=== PATIENT | female | born 1985 | race Two or more races ===

== ENCOUNTER 2016-10-22 16:40 | Inpatient (IN) | payer MEDICAID ==
[2016-10-22] MEDS ORDERED: ONDANSETRON 4 MG TAB.RAPDIS PO ONE (18:06)
[2016-10-22] MEDS ORDERED: HYDROCODONE/ACETAMINOPHEN 5-325 MG TABLET PO ONE (18:06)
--- NOTE | 2016-10-22 18:24 | ER Document Report ---
ED Medical Screen (RME) - General TRAVEL OUTSIDE OF THE [place] IN LAST 30 DAYS: No <SHERRIE NIEVES - Last Filed: 10/22/16 18:24> <LAUREN LLOYD - Last Filed: 10/22/16 20:33> - General Chief Complaint: Abdominal Pain Stated Complaint: ABDOMINAL PAIN,BACK PAIN Time Seen by Provider: 10/22/16 17:59 Notes: 30-year-old Ethiopian speaking female presenting to the emergency department for right upper quadrant pain that radiates into her back. Patient's sister translates for the patient. Boni patient states her pain feels like a burning she had similar pain during . Patient was told during her to take antiacid medications. Patient states during her the pain was waxing and waning but now the pain is constant. Patient also has some nausea and states her pain is exacerbated with food. Patient states she can only eat very small amounts. Patient has no surgical history. Patient also complains of fever. (SHERRIE NIEVES) - Related Data Allergies/Adverse Reactions: No Known Drug Allergies Allergy (Verified 10/22/16 17:51) Past Medical History Renal/ Medical History: Denies: Hx Peritoneal Dialysis <SHERRIE NIEVES - Last Filed: 10/22/16 18:24> Physical Exam <SHERRIE NIEVES - Last Filed: 10/22/16 18:24> <LAUREN LLOYD - Last Filed: 10/22/16 20:33> - Vital signs Vitals: Temp Pulse Resp BP Pulse Ox 98.3 F 69 16 107/69 100 10/22/16 17:16 10/22/16 17:16 10/22/16 17:16 10/22/16 17:16 10/22/16 17:16 - Notes Notes: GENERAL: Alert, interacts well. No acute distress. LUNGS: Clear to auscultation bilaterally, no wheezes, rales, or rhonchi. No respiratory distress. HEART: Regular rate and rhythm. No murmurs, gallops, or rubs. ABDOMEN: Soft, RUQ tenderness, positive Barraza's sign. EXTREMITIES: Moves all 4 extremities spontaneously. NEUROLOGICAL: Alert and oriented x3. Normal speech. (SHERRIE NIEVES) Course - Laboratory Result Diagrams: 10/22/16 18:35 10/22/16 18:35 <LAUREN LLOYD - Last Filed: 10/22/16 20:33> - Vital Signs Vital signs: Temp Pulse Resp BP Pulse Ox 98.3 F 69 16 107/69 100 10/22/16 17:16 10/22/16 17:16 10/22/16 17:16 10/22/16 17:16 10/22/16 17:16 - Laboratory Laboratory results interpreted by me: 10/22/16 10/22/16 18:35 18:35 WBC 10.8 H AST 151 H ALT 109 H Scribe Documentation - Scribe Written by Scribe:: Megan Alvarez, 10/22/16 18:40 acting as scribe for :: Akhil <SHERRIE NIEVES - Last Filed: 10/22/16 18:24>
[2016-10-22 19:00] LABS: ABSOLUTE EOSINOPHILS # (AUTO) 0.2 10^3/uL (0.0-0.6); ABSOLUTE LYMPHOCYTES (AUTO) 2.9 10^3/uL (0.5-4.7); ABSOLUTE MONOCYTES (AUTO) 0.7 10^3/uL (0.1-1.4); BASOPHILS % (AUTO) 0.2 % (0-2); EOSINOPHILS % (AUTO) 1.7 % (0-6); HEMATOCRIT 37.1 % (36.0-47.0); HEMOGLOBIN 12.5 g/dL (12.0-15.5); HGB HCT DIFFERENCE 0.4; LYMPHOCYTES % (AUTO) 26.7 % (13-45); MEAN CORPUSCULAR HEMOGLOBIN 29.7 pg (27.0-33.4); MEAN CORPUSCULAR HGB CONC 33.6 g/dL (32.0-36.0); MEAN CORPUSCULAR VOLUME 88 fl (80-97); MONOCYTES % (AUTO) 6.5 % (3-13); RED CELL DISTRIBUTION WIDTH 13.3 % (11.5-14.0); SEGMENTED NEUTROPHILS % (AUTO) 64.9 % (42-78); WHITE BLOOD COUNT 10.8 10^3/uL (4.0-10.5)
--- NOTE | 2016-10-22 19:14 | ER Document Report ---
ED GI/ - General Chief Complaint: Abdominal Pain Stated Complaint: ABDOMINAL PAIN,BACK PAIN Time Seen by Provider: 10/22/16 17:59 Notes: Patient is a 30-year-old female that comes emergency department for chief complaint of pain in her right upper abdomen and middle of the abdomen, she states the pain seems to go around to her right mid back, symptoms have been present for almost 6 days now, she states she is having trouble eating or drinking anything because eating causes pain, she states she vomited earlier today. Patient states she had this pain towards the end of her as well, was taking antacids for it. Patient denies any surgeries, only past medical history is hypothyroidism for which she takes Synthroid. she denies alcohol, smoking. Last menstrual period 1 week ago. TRAVEL OUTSIDE OF THE [place] IN LAST 30 DAYS: No - Related Data Allergies/Adverse Reactions: No Known Drug Allergies Allergy (Verified 10/22/16 17:51) Past Medical History - General Information source: Patient - Social History Smoking Status: Never Smoker Frequency of alcohol use: None Drug Abuse: None Lives with: Family Family History: Reviewed & Not Pertinent - Medical History Medical History: Negative Renal/ Medical History: Denies: Hx Peritoneal Dialysis Surgical Hx: Negative - Immunizations Immunizations up to date: Yes Hx Diphtheria, Pertussis, Tetanus Vaccination: Yes Review of Systems - Review of Systems Constitutional: No symptoms reported EENT: No symptoms reported Cardiovascular: No symptoms reported Respiratory: No symptoms reported Gastrointestinal: See HPI Genitourinary: No symptoms reported Female Genitourinary: No symptoms reported Musculoskeletal: No symptoms reported Skin: No symptoms reported Hematologic/Lymphatic: No symptoms reported Neurological/Psychological: No symptoms reported Physical Exam - Vital signs Vitals: Temp Pulse Resp BP Pulse Ox 98.3 F 69 16 107/69 100 10/22/16 17:16 10/22/16 17:16 10/22/16 17:16 10/22/16 17:16 10/22/16 17:16 Interpretation: Normal - General General appearance: Appears well, Alert In distress: None - HEENT Head: Normocephalic, Atraumatic Eyes: Normal Pupils: PERRL - Respiratory Respiratory status: No respiratory distress Chest status: Nontender Breath sounds: Normal Chest palpation: Normal - Cardiovascular Rhythm: Regular. No: Tachycardia Heart sounds: Normal auscultation, S1 appreciated, S2 appreciated Murmur: No - Abdominal Inspection: Normal Distension: No distension Bowel sounds: Normal Tenderness: Tender - Right upper quadrant tenderness with guarding and also tenderness in the epigastric area, otherwise benign and soft abdomen, Barraza's sign, Guarding Organomegaly: No organomegaly - Back Back: Normal, Nontender. No: CVA tenderness - Extremities General upper extremity: Normal inspection, Nontender, Normal color, Normal ROM , Normal temperature General lower extremity: Normal inspection, Nontender, Normal color, Normal ROM , Normal temperature, Normal weight bearing. No: Javad's sign - Neurological Neuro grossly intact: Yes Cognition: Normal Orientation: AAOx4 Wayne Coma Scale Eye Opening: Spontaneous [place] Coma Scale Verbal: Oriented Wayne Coma Scale Motor: Obeys Commands Wayne Coma Scale Total: 15 Speech: Normal Motor strength normal: LUE, RUE, LLE, RLE Sensory: Normal - Psychological Associated symptoms: Normal affect, Normal mood - Skin Skin Temperature: Warm Skin Moisture: Dry Skin Color: Normal Course - Re-evaluation Re-evalutation: On examination patient was guarding in the epigastric area and right upper quadrant with positive Barraza sign. No CVA tenderness. No lower abdominal tenderness. Patient does not appear to be in distress. No tachycardia, hypotension, fever. Mild leukocytosis at 10.8 with no bandemia or shift. Chemistry shows mildly elevated LFTs with AST greater than ALT, patient denies any recent alcohol. Alkaline phosphatase is normal, bilirubin normal, lipase normal. Ultrasound showing cholelithiasis with mild gallbladder wall thickening but no. Cholecystic fluid. No common bile duct dilatation. On reexamination patient's pain is improved although she still having some pain on examination. Patient is unable to eat at home due to discomfort. Vomited once earlier. Discussed with Dr. Petit. 10/22/16 20:[address] Whitaker, patient will be admitted to the surgical service, he requests repeat labs at 6 AM in addition to management. Patient and family are very agreeable with this plan. - Vital Signs Vital signs: Temp Pulse Resp BP Pulse Ox 98.3 F 69 16 107/69 100 10/22/16 17:16 10/22/16 17:16 10/22/16 17:16 10/22/16 17:16 10/22/16 17:16 - Laboratory Result Diagrams: 10/22/16 18:35 10/22/16 18:35 Laboratory results interpreted by me: 10/22/16 10/22/16 18:35 18:35 WBC 10.8 H AST 151 H ALT 109 H Discharge - Discharge Clinical Impression: Right upper quadrant pain Cholelithiasis Qualifiers: Cholelithiasis location: gallbladder Cholecystitis presence: without cholecystitis Biliary obstruction: without biliary obstruction Qualified Code(s) : K80.20 - Calculus of gallbladder without cholecystitis without obstruction Vomiting Qualifiers: Vomiting type: unspecified Vomiting Intractability: non-intractable Nausea presence: with nausea Qualified Code(s): R11.2 - Nausea with vomiting, unspecified Condition: Stable Disposition: ADMITTED INPATIENT Admitting Provider: Surgicalist Unit Admitted: Surgical Floor
[2016-10-22 19:22] LABS: ALANINE AMINOTRANSFERASE 109 U/L (9-52); ALKALINE PHOSPHATASE 126 U/L (38-126); ANION GAP 9 (5-19); ASPARTATE AMINO TRANSFERASE 151 U/L (14-36); BILIRUBIN,DIRECT 0.3 mg/dL (0.0-0.4); BILIRUBIN,TOTAL 0.4 mg/dL (0.2-1.3); BLOOD UREA NITROGEN 12 mg/dL (7-20); CALCIUM 9.4 mg/dL (8.4-10.2); CARBON DIOXIDE 29 mmol/L (22-30); CHLORIDE 104 mmol/L (98-107); CREATININE RESULT 0.71 mg/dL (0.52-1.25); GLUCOSE 82 mg/dL (75-110); POTASSIUM 3.7 mmol/L (3.6-5.0); SODIUM 141.8 mmol/L (137-145); TOTAL PROTEIN 7.6 g/dL (6.3-8.2)
--- NOTE | 2016-10-22 19:25 | RADIOLOGY REPORT (SQ) ---
EXAM DESCRIPTION: U/S ABDOMEN LIMITED W/O DOP COMPLETED DATE/TIME: 10/22/2016 7:09 pm REASON FOR STUDY: RUQ pain radiating to back COMPARISON: None. TECHNIQUE: Dynamic and static grayscale images acquired of the abdomen and recorded on PACS. Additio nal selected color Doppler and spectral images recorded. LIMITATIONS: None. FINDINGS: PANCREAS: No masses. Visualized pancreatic duct normal caliber. LIVER: No masses. Echotexture normal. LIVER VASCULATURE: Normal in appearance. GALLBLADDER: There are gallstones. Gallbladder wall is slightly thickened measured at 3.3 mm with 3 being the upper limits of normal. ULTRASOUND-DETECTED BARRAZA'S SIGN: Negative. INTRAHEPATIC DUCTS AND COMMON DUCT: CBD and intrahepatic ducts normal caliber. No filling defects. INFERIOR VENA CAVA: Not visualized. AORTA: No aneurysm. RIGHT KIDNEY: Normal size. Normal echogenicity. No solid or suspicious masses. No hydronephrosis. No calcifications. PERITONEAL AND RIGHT PLEURAL SPACE: No ascites or effusions. OTHER: No other significant findings. IMPRESSION: 1. Cholelithiasis. 2. Mildly thickened gallbladder wall. Negative sonographic Barraza's sign. TECHNICAL DOCUMENTATION: JOB ID: [id number] [employer]- All Rights Reserved
[2016-10-22] MEDS ORDERED: AMPICILLIN SOD/SULBACTAM 3 GM VIAL IV ONE (20:29)
[2016-10-22] MEDS ORDERED: MORPHINE SULFATE 10 MG/ML INJ IV PRN (20:31)
[2016-10-22] MEDS ORDERED: KETOROLAC TROMETHAMINE INJ/PF 30 MG/1 ML SDV IV ONE (20:32)
[2016-10-22] MEDS: NORMAL SALINE 1000 ML 1,000 ML IV PRN (20:51)
--- NOTE | 2016-10-22 22:18 | HISTORY AND PHYSICAL E ---
History and Physical NAME: EL NEWMAN : 1985 AGE: 30Y ADMITTED: 10/22/2016 ROOM: 208 CHIEF COMPLAINT: Abdominal pains. HISTORY OF PRESENT ILLNESS: This is a 31-year-old female complaining of right upper quadrant pains for the past 6 days associated with nausea and had vomiting yesterday. She is not able to eat because when she eats, she develops pains. She did start with the right upper quadrant pains after she had her baby a year ago. She would have some right upper quadrant pains usually about once or twice a month but these would only last at most about half an hour. This time these pains have lasted for at least 6 days now. REVIEW OF SYSTEMS: As in HPI. Denies any fever, chills, diarrhea, constipation or dysuria. No cough or chest pains. No headaches. No visual or ear problems. No balance problems. No easy bruisability. The rest of the systems are unremarkable. GI: As in HPI. ALLERGIES: None known. SOCIAL HISTORY: Denies smoking, drinking or drug use. FAMILY HISTORY: Positive for diabetes in both parents. Mother had gallbladder surgery. PHYSICAL EXAMINATION: GENERAL: A well-developed, slightly overweight 30-year-old female, alert and oriented, complaining of abdominal pains. HEENT: Neck is supple, no thyromegaly. She does have hypothyroidism and takes Synthroid for this. Mucosa is moist. Pupils are equal, round and reactive to light. Nonicteric conjunctivae. LUNGS: Clear. HEART: Regular sinus rhythm. ABDOMEN: Soft with tenderness in the right upper quadrant in epigastric areas. EXTREMITIES: No edema. IMPRESSION: Acute calculous cholecystitis. PLAN: Ultrasound of the gallbladder showed gallstones with thickened gallbladder wall but no pericholecystic fluid. The plan is to keep her n.p.o., IV antibiotics and hydrate her for possible laparoscopic gallbladder surgery in the morning. DICTATING PHYSICIAN: ELLEN NY M.D. [id number] [id number] PHY#: [id number] ID: [id number] JOB#: [id number] ACCT: [id number] cc:ELLEN NY M.D. >
[2016-10-22 23:37] LABS: APPEARANCE,URINE CLEAR; BILIRUBIN,URINE NEGATIVE (NEGATIVE); GLUCOSE, URINE NEGATIVE (NEGATIVE); KETONES,URINE NEGATIVE (NEGATIVE); LEUKOCYTE ESTERASE,URINE NEGATIVE (NEGATIVE); NITRITE,URINE NEGATIVE (NEGATIVE); PROTEIN,URINE NEGATIVE (NEGATIVE); URINE SPECIFIC GRAVITY 1.011; UROBILINOGEN,URINE NEGATIVE mg/dL (<2.0)
[2016-10-23] MEDS: NORMAL SALINE 1000 ML 1,000 ML IV PRN ×2 (06:10→22:11)
[2016-10-23 07:01] LABS: ABSOLUTE EOSINOPHILS # (AUTO) 0.2 10^3/uL (0.0-0.6); ABSOLUTE LYMPHOCYTES (AUTO) 2.3 10^3/uL (0.5-4.7); ABSOLUTE MONOCYTES (AUTO) 0.6 10^3/uL (0.1-1.4); ABSOLUTE NEUT (AUTO) 4.2 10^3/uL (1.7-8.2); BASOPHILS % (AUTO) 0.2 % (0-2); EOSINOPHILS % (AUTO) 2.3 % (0-6); HEMATOCRIT 31.5 % (36.0-47.0); HEMOGLOBIN 11.1 g/dL (12.0-15.5); HGB HCT DIFFERENCE 1.8; LYMPHOCYTES % (AUTO) 31.8 % (13-45); MEAN CORPUSCULAR HEMOGLOBIN 30.7 pg (27.0-33.4); MEAN CORPUSCULAR HGB CONC 35.2 g/dL (32.0-36.0); MEAN CORPUSCULAR VOLUME 87 fl (80-97); MONOCYTES % (AUTO) 7.7 % (3-13); RED BLOOD COUNT 3.62 10^6/uL (3.72-5.28); RED CELL DISTRIBUTION WIDTH 13.4 % (11.5-14.0); WHITE BLOOD COUNT 7.2 10^3/uL (4.0-10.5)
[2016-10-23 07:20] LABS: ALANINE AMINOTRANSFERASE 149 U/L (9-52); ALKALINE PHOSPHATASE 110 U/L (38-126); ANION GAP 7 (5-19); ASPARTATE AMINO TRANSFERASE 146 U/L (14-36); BILIRUBIN,DIRECT 0.3 mg/dL (0.0-0.4); BILIRUBIN,TOTAL 0.5 mg/dL (0.2-1.3); BLOOD UREA NITROGEN 11 mg/dL (7-20); CALCIUM 8.2 mg/dL (8.4-10.2); CARBON DIOXIDE 27 mmol/L (22-30); CHLORIDE 106 mmol/L (98-107); CREATININE RESULT 0.59 mg/dL (0.52-1.25); GLUCOSE 78 mg/dL (75-110); POTASSIUM 3.8 mmol/L (3.6-5.0); SODIUM 140.2 mmol/L (137-145); TOTAL PROTEIN 6.1 g/dL (6.3-8.2)
[2016-10-23] MEDS ORDERED: VECURONIUM BROMIDE INJ 10 MG VIAL IV ONE (07:42)
[2016-10-23] MEDS ORDERED: ONDANSETRON HCL INJ/PF 4 MG/2 ML SDV ONE (07:42)
[2016-10-23] MEDS ORDERED: LIDOCAINE 2% INJ-PF (20 MG/ML) 10 ML AMPUL ONE (07:42)
[2016-10-23] MEDS ORDERED: DEXAMETHASONE SOD PHOSPHATE INJ 4 MG/1 ML VIAL ONE (07:42)
[2016-10-23] MEDS ORDERED: GLYCOPYRROLATE INJ 0.4 MG/2 ML VIAL ONE (07:42)
[2016-10-23] MEDS ORDERED: SUCCINYLCHOLINE CHLORIDE INJ 200 MG/10 ML VIAL ONE (07:42)
[2016-10-23] MEDS ORDERED: NEOSTIGMINE METHYLSULFATE 10 MG/10 ML VIAL ONE (07:42)
[2016-10-23] MEDS ORDERED: BUPIVACAINE HCL 0.25 % INJ/PF (2.5 MG/1 ML) 30 ML VIAL ONE (09:43)
[2016-10-23] MEDS ORDERED: FENTANYL CITRATE INJ/PF 250 MCG/5 ML AMPULE ONE (12:42)
[2016-10-23] MEDS ORDERED: PROPOFOL INJ 200 MG/20 ML VIAL IV ONE (12:42)
[2016-10-23] MEDS ORDERED: ACETAMINOPHEN 100 ML IV ONE (12:42)
[2016-10-23] MEDS ORDERED: IBUPROFEN INJ 800 MG/8 ML VIAL IV ONE (12:42)
[2016-10-23] MEDS ORDERED: MIDAZOLAM 2 MG/2 ML INJ ONE (12:42)
[2016-10-23] MEDS ORDERED: HYDROMORPHONE HCL INJ/PF 2 MG/ML AMPULE ONE (12:42)
[2016-10-23] MEDS ORDERED: CEFAZOLIN INJ 1 GM VIAL ONE (13:12)
[2016-10-23] MEDS ORDERED: FENTANYL CITRATE INJ/PF 100 MCG/2 ML AMPUL IV PRN ×3 (14:08→16:08)
[2016-10-23] MEDS ORDERED: PROMETHAZINE HCL INJ 25 MG/1 ML VIAL IV PRN (14:08)
[2016-10-23] MEDS ORDERED: MORPHINE SULFATE 10 MG/ML INJ IV PRN (14:08)
[2016-10-23] MEDS ORDERED: DIPHENHYDRAMINE HCL 50 MG/ML VIAL IV PRN (14:08)
[2016-10-23] MEDS ORDERED: MEPERIDINE HCL/PF INJ 25 MG/1 ML DISP.SYRIN IV PRN (14:08)
[2016-10-23] MEDS ORDERED: FENTANYL CITRATE INJ/PF 100 MCG/2 ML AMPUL ONE (14:55)
[2016-10-23] MEDS ORDERED: HYDROMORPHONE HCL INJ/PF 2 MG/ML AMPULE IV PRN (15:00)
[2016-10-23] MEDS ORDERED: ONDANSETRON HCL INJ/PF 4 MG/2 ML SDV IV PRN (15:00)
[2016-10-23] MEDS: CEFAZOLIN 2 GM/D5W RTU 2 GM/50 ML RTUPB IV SCH (18:09)
[2016-10-23] MEDS: OXYCODONE-ACETAMINOPHEN 5-325 MG TABLET PO PRN ×2 (18:11→22:11)
[2016-10-23] MEDS ORDERED: CEFAZOLIN SODIUM 2 GM in DEXTROSE 5%-WATER 100 ML IV SCH (22:00)
[2016-10-24] MEDS: CEFAZOLIN 2 GM/D5W RTU 2 GM/50 ML RTUPB IV SCH (02:02)
[2016-10-24] MEDS: OXYCODONE-ACETAMINOPHEN 5-325 MG TABLET PO PRN ×2 (02:05→08:32)
[2016-10-24 08:38] VITALS: BP 110/65
--- NOTE | 2016-10-30 12:29 | OPERATIVE REPORT E ---
Operative Report NAME: EL NEWMAN : 1985 AGE: 30Y DATE OF SURGERY: ROOM: 208 PREOPERATIVE DIAGNOSIS: Acute calculus cholecystitis. POSTOPERATIVE DIAGNOSIS: Acute calculus cholecystitis. OPERATION: Laparoscopic cholecystectomy. SURGEON: ELLEN NY M.D. ANESTHESIA: General. INDICATION: This is a 30-year-old female who has been complaining of right upper quadrant pains for the past 6 days. Ultrasound showed gallstones and thickened gallbladder wall. PROCEDURE: After adequate general anesthesia, the patient was placed in the supine position, and the abdomen prepped and draped in the usual sterile fashion. After an appropriate time-out, a small infraumbilical incision was made, the fascia exposed and opened. A Familia trocar was then inserted through the fascia into the abdominal cavity. A 10-mm camera was inserted. Three other trocars, a 12-mm, subxiphoid, and two 5-mm in the right upper quadrant were placed under direct vision. The gallbladder was then identified and noted to be thickened and somewhat distended. It was subsequently grasped at the end, and some adhesions were bluntly lysed. The fundus of the gallbladder was then grasped, and the cystic duct dissected, as well as the cystic artery. This showed us the critical view. The cystic duct was then clipped with hemoclips and divided between the hemoclips. A gallstone was noted between the clips, and this was subsequently pulled out through the trocar sites. Next, the cystic artery was then clipped and divided between the clip and the gallbladder with the use of Harmonic zoë. The gallbladder was then dissected off the liver bed with Harmonic zoë. The gallbladder was noted to be somewhat intrahepatic, and some of the gallbladder was peeled off from the liver bed. Hemostasis was then controlled with the use of Harmonic zoë. The gallbladder was then completely removed, placed in an Endobag and pulled out through the umbilical port. Next, the liver bed was then inspected and noted to be relatively dry. A Surgicel was then placed in the liver bed. The trocars were removed, and no bleeding noted from the trocar sites. The Familia fascial defect was then closed with [id number] suture using #0 Vicryl, and the xiphoid defect fascia was closed with a single suture using #0 Vicryl. All the skin incisions were then closed with running subcuticular 4-0 Vicryl and tied. Dermabond was then used to grasp the incisions. The patient tolerated the procedure well. Needle, instrument, and sponge counts were all correct, and estimated blood loss was minimal. Patient brought to the recovery room in satisfactory condition. DICTATING PHYSICIAN: ELLEN NY M.D. [id number] PHY#: [id number] ID: [id number] JOB#: [id number] ACCT: [id number] cc:ELLEN NY M.D. >
--- NOTE | 2016-11-08 21:48 | DISCHARGE SUMMARY E ---
Discharge Summary NAME: EL NEWMAN : 1985 AGE: 30Y ADMITTED: 10/22/2016 DISCHARGED: 10/24/2016 FINAL DIAGNOSIS: 1. Acute on chronic cholecystitis. 2. Cholelithiasis. PROCEDURE DONE: On 10/23/2016, laparoscopic cholecystectomy by Dr. Whitaker. SUMMARY: This is a 30-year-old female who underwent laparoscopic cholecystectomy for acute on chronic calculus cholecystitis on 10/23/2016. She was admitted on 10/22/2016 for acute calculus cholecystitis. Postoperatively, she did well and discharged improved on 10/24/2016. She was able to tolerate soft diet. She was then discharged to be seen at the [facility] in about a week. She was advised not to do any lifting more than 10-15 pounds for the next week and then gradually increase it to as tolerated. DICTATING PHYSICIAN: ELLEN WHITAKER M.D. [id number] [id number] PHY#: [id number] ID: [id number] JOB#: [id number] ACCT: [id number] cc:Derick ARTHUR MD, M.D. >
== END 2016-10-24 09:40 | disposition home or self-care (01) | DRG 419 ==
LOC: ER 16:40 → 2N 20:04 → EH 20:44 → UNDOADMIN 20:44 → EH 21:50 → 2N 21:50
PROVIDERS: ADMIT Surgery; ATTEND Surgery
PROC: 0FT44ZZ Resection of Gallbladder, Percutaneous Endoscopic Approach (ICD-10-PCS; principal; 2016-10-23 12:00)
DX: K80.12 Calculus of gallbladder with acute and chronic cholecystitis without obstruction (principal); E03.9 Hypothyroidism, unspecified; Z79.899 Other long term (current) drug therapy
CPT/HCPCS: 36415; 76705; 790; 80053; 81001; 83690; 84703; 85025; 88304; 99285; J0131; J0295; J0330; J0690; J1100; J1170; J1741; J1885; J2250; J2270; J2405; J2704; J3010; J3490; J7030; S0119